=== PATIENT | female | born 1945 | race Caucasian/White ===

== ENCOUNTER 2016-12-27 14:09 | Emergency (ER) | payer MEDICARE ==
[~2016-12-27] VITALS: Ht 172.7 cm; Wt 63.5 kg
[2016-12-27 14:10] VITALS: BP 111/42; PULSE 99; RESP 16; TEMP 97.9; O2SAT 97
--- NOTE | 2016-12-27 14:14 | NUR ---
Arrived via [facility] ambulance with compliant of ALOC. Patient was unresponsive on scene with HR 139, BP 50/p. Patient was given 400mL NS enroute with improvement of BP and HR. Pt is also more responsive at this time. Placed in room 1 . Placed on field appraiser, blood pressure machine and pulse oximeter. To gown for exam. Side rails up. Report given to Arnoldo GRAHAM.
--- NOTE | 2016-12-27 14:19 | NUR ---
Pt BIB ALS. Per caregiver at pt's home, pt was unresponsive earlier today while ambulating to bathroom. Per pt, caregiver denies any mechanical injury or head/neck injury. Per caregiver, pt has had intermittent episodes of vomiting since monday. Caregiver states pt's health has "declined for last week" and has been anuric since 0900 this morning. HR was 139 on arrival to ER, with systolic BP 50. ALS gave NS bolus before ER arrival, current BP 114/55 and HR 101 at this time. Pt denies any other complaints.
--- NOTE | 2016-12-27 14:20 | NUR ---
ER Dr. Horta at bedside examining patient.
[2016-12-27] MEDS ORDERED: NACL 0.9% 1,000 ML IV ONE (14:45)
[2016-12-27 15:04] LABS: BASOPHILS % (AUTO) 1.1 % (0.0-2.0); EOSINOPHILS % (AUTO) 0.2 % (0.0-4.0); HEMATOCRIT 34.4 % (36-48); HEMOGLOBIN 11.3 g/dL (12.0-16.0); LYMPHOCYTES # (AUTO) 0.4 K/uL (1.0-5.5); LYMPHOCYTES % (AUTO) 11.5 % (20.5-51.5); MEAN CORPUSCULAR HEMOGLOBIN 30 pg (27-31); MEAN CORPUSCULAR HGB CONC 33 % (32-36); MEAN CORPUSCULAR VOLUME 91 fL (79.0-98.0); MONOCYTES % (AUTO) 1.2 % (1.7-9.3); PLATELET COUNT (AUTO) 145 K/uL (130-430); RED BLOOD CELL COUNT(AUTO) 3.76 MIL/uL (4.2-6.2); RED CELL DISTRIBUTION WIDTH 17.8 % (9.0-15.0)
[2016-12-27 15:07] LABS: WHITE BLOOD COUNT (AUTO) 3.4 K/uL (4.8-10.8)
[2016-12-27 15:13] LABS: BILIRUBIN,URINE 2+ (NEGATIVE); BLOOD, URINE NEGATIVE (NEGATIVE); CLARITY/URINE HAZY (CLEAR); COLOR,URINE AMBER (YELLOW); GLUCOSE,URINE NEGATIVE (NEGATIVE); KETONES,URINE TRACE (NEGATIVE); LEUKOCYTE ESTERASE ,URINE NEGATIVE (NEGATIVE); NITRITE, URINE POSITIVE (NEGATIVE); PROTEIN URINE 2+ (NEGATIVE)
[2016-12-27 15:23] LABS: INR 1.1 (0.8-1.2)
[2016-12-27 15:24] LABS: BARBITURATE, URINE NEGATIVE (NEG <=200); BENZODIAZEPINE, URINE POSITIVE (NEG <=150); CANNABINOID, URINE NEGATIVE (NEG <=50); COCAINE, URINE NEGATIVE (NEG <=150); METHAMPHETAMINES SCREEN,URINE NEGATIVE (NEG <=500); OPIATE, URINE NEGATIVE (NEG <=100); PHENCYCLIDINE SCREEN,URINE NEGATIVE (NEG <=25); UR TRICYCLIC ANTIDEPRESSANTS NEGATIVE (NEG <=300); URINE AMPHETAMINE NEGATIVE (NEG <=500); URINE METHADONE NEGATIVE (NEG <=200); URINE OXYCODONE SCREEN NEGATIVE (NEG <=100); URINE PROPOXYPHENE SCREEN NEGATIVE (NEG <=300)
[2016-12-27 15:26] LABS: ANION GAP 13 (5-15); CALCIUM 9.9 mg/dL (8.4-11.0); CHLORIDE 104 mmol/L (98-107); CREATININE 1.59 mg/dL (0.55-1.30); GLUCOSE 216 mg/dL (70-99); POTASSIUM 3.3 mmol/L (3.5-5.1); SODIUM SERUM 142 mmol/L (136-145); UREA NITROGEN, BLOOD 39 mg/dL (8-21)
--- NOTE | 2016-12-27 15:30 | NUR ---
Pt stable, no signs of distress noted. 2 members of family at bedside
[2016-12-27 15:43] LABS: ALANINE AMINOTRANSFERASE 134 U/L (12-78); ALBUMIN 3.5 g/dL (3.4-4.8); ASPARTATE AMINOTRANSFERASE 92 U/L (10-37); FREE T4 (FREE THYROXINE) 1.2 ng/dL (0.6-1.6); TOTAL BILIRUBIN 1.4 mg/dL (0.0-1.0); TOTAL PROTEIN, SERUM 7.1 g/dL (6.4-8.3)
[2016-12-27 15:45] LABS: ALCOHOL, BLOOD < 3 mg/dL (<10)
[2016-12-27 15:55] LABS: BACTERIA,URINE MANY /HPF (None Seen); MUCUS,URINE 1+ /LPF (None Seen); RBC,URINE 0-3 /HPF (0-3)
[2016-12-27 15:56] LABS: HYALINE CASTS, URINE 50-70 /LPF (None Seen)
--- NOTE | 2016-12-27 16:00 | NUR ---
Pt stable, no signs of distress noted
[2016-12-27 17:49] VITALS: BP 138/48; PULSE 100; RESP 16; TEMP 98.1; O2SAT 98
--- NOTE | 2016-12-27 17:49 | NUR ---
Patient does not wish to proceed with medical care recommended by Dr. Horta. Patient given information related to possible complications, up to and including , which could occur as a result of leaving hospital at this time. Patient verbalizes understanding of risks involved leaving against medical advice. Patient has signed AMA form. BLS transfer at bedside for transport home. AAOx4, no signs of distress noted. IV catheter removed, catheter intact. ID band removed.
== END 2016-12-27 17:49 | disposition left against medical advice (07) ==
LOC: SED 14:09
DX: I95.9 Hypotension, unspecified (principal); Z88.2 Allergy status to sulfonamides; Z91.011 Allergy to milk products
CPT/HCPCS: 36415; 80053; 80307; 81000; 82140; 83605; 83880; 84439; 84484; 85025; 85610; 87040; 87086; 96360; 99284; G0482; J7030